=== PATIENT | female | born 1995 | race Hispanic/Latino ===

== ENCOUNTER 2017-12-20 19:15 | Emergency (ER) | payer SELFPAY ==
[2017-12-20 19:33] LABS: BILIRUBIN,URINE Negative (NEGATIVE); COLOR,URINE Yellow (YELLOW); GLUCOSE, URINE (UA) Negative (NEGATIVE); KETONES,URINE Negative (NEGATIVE); LEUKOCYTE ESTERASE ,URINE Trace (NEGATIVE); NITRATE,URINE Negative (NEGATIVE); OCCULT BLOOD,URINE Negative (NEGATIVE); PH,URINE 6.5 (5.0-8.0); PROTEIN,URINE Negative (NEGATIVE)
[2017-12-20 19:34] LABS: APPEARANCE,URINE SLIGHTLY CLOUDY (CLEAR)
[2017-12-20 19:36] LABS: HCG,QUAL RESULT NEGATIVE (NEGATIVE)
[2017-12-20 19:41] LABS: AMPHET/METH SCREEN,URINE NEGATIVE (NEGATIVE); BARBITURATE SCREEN, URINE NEGATIVE (NEGATIVE); BENZODIAZEPINES SCREEN,URINE NEGATIVE (NEGATIVE); CANNABINOID SCREEN,URINE NEGATIVE (NEGATIVE); COCAINE SCREEN,URINE NEGATIVE (NEGATIVE); OPIATE SCREEN,URINE NEGATIVE (NEGATIVE); PHENCYCLIDINE SCREEN,URINE NEGATIVE (NEGATIVE)
[2017-12-20 19:42] LABS: BACTERIA,URINE Few /HPF (None Seen); RBC,URINE 0-1 /HPF (0-1); SQUAMOUS EPITHELIAL CELL,UR Moderate /HPF (0-2); WBC,URINE 0-1 /HPF (0-1)
[2017-12-20 19:49] LABS: BASOPHILS % (AUTO) 0.5 % (0.0-5.0); EOSINOPHILS % (AUTO) 5.1 % (0.0-8.0); HEMATOCRIT 44.4 % (36-48); LYMPHOCYTES % (AUTO) 33.7 % (21.0-51.0); MEAN CORPUSCULAR HEMOGLOBIN 30.8 pg (27.0-33.0); MEAN CORPUSCULAR HGB CONC 35.7 g/dL (32.0-36.0); MEAN CORPUSCULAR VOLUME 86.2 fL (79-99); MONOCYTES % (AUTO) 5.3 % (3.0-13.0); NEUTROPHILS % (AUTO) 55.4 % (40.0-77.0); PLATELET COUNT (AUTO) 304 K/uL (130-400); RED BLOOD CELL COUNT(AUTO) 5.15 MIL/uL (4.00-5.50); RED CELL DISTRIBUTION WIDTH 12.8 % (11.0-15.5); WHITE BLOOD COUNT (AUTO) 9.4 K/uL (4.8-10.8)
[2017-12-20 19:52] LABS: POTASSIUM 4.5 mmol/L (3.5-5.1)
[2017-12-20 19:57] LABS: ALBUMIN 3.7 g/dL (3.5-5.0); BILIRUBIN,TOTAL 0.8 mg/dL (0.2-1.0); TOTAL PROTEIN, SERUM 7.8 g/dL (6.0-8.3)
== END 2017-12-20 21:35 | disposition home or self-care (01) ==
LOC: EDH 19:15
DX: N23 Unspecified renal colic (principal); Z87.442 Personal history of urinary calculi
CPT/HCPCS: 36415; 76770; 80053; 80305; 81001; 81025; 85025; 96361; 96374; 96375

== ENCOUNTER 2018-06-26 21:13 | Emergency (ER) | payer OTHER ==
[2018-06-26 21:38] LABS: BILIRUBIN,URINE Negative (NEGATIVE); COLOR,URINE Yellow (YELLOW); GLUCOSE, URINE (UA) Negative (NEGATIVE); KETONES,URINE Negative (NEGATIVE); LEUKOCYTE ESTERASE ,URINE Trace (NEGATIVE); NITRATE,URINE Negative (NEGATIVE); OCCULT BLOOD,URINE Large (NEGATIVE); PH,URINE 6.5 (5.0-8.0); PROTEIN,URINE Negative (NEGATIVE)
[2018-06-26 21:41] LABS: HCG,QUAL RESULT NEGATIVE (NEGATIVE)
[2018-06-26 21:42] LABS: APPEARANCE,URINE SLIGHTLY CLOUDY (CLEAR)
[2018-06-26 21:53] LABS: BACTERIA,URINE Few /HPF (None Seen)
[2018-06-26] MEDS ORDERED: ONDANSETRON ODT 4 MG TAB ONE (22:07)
[2018-06-26] MEDS ORDERED: DICYCLOMINE HCL 10 MG/ML 2ML AMP IM ONE (22:07)
[2018-06-26 22:23] LABS: BASOPHILS % (AUTO) 0.4 % (0.0-5.0); EOSINOPHILS % (AUTO) 3.2 % (0.0-8.0); HEMATOCRIT 43.6 % (36-48); LYMPHOCYTES % (AUTO) 31.5 % (21.0-51.0); MEAN CORPUSCULAR HEMOGLOBIN 30.8 pg (27.0-33.0); MEAN CORPUSCULAR VOLUME 87.8 fL (79-99); MONOCYTES % (AUTO) 3.6 % (3.0-13.0); NEUTROPHILS % (AUTO) 61.3 % (40.0-77.0); NUCLEATED RED BLOOD CELLS 0.1 % (0.0-0.19); PLATELET COUNT (AUTO) 263 K/uL (130-400); RED BLOOD CELL COUNT(AUTO) 4.97 MIL/uL (4.00-5.50); RED CELL DISTRIBUTION WIDTH 12.7 % (11.0-15.5); WHITE BLOOD COUNT (AUTO) 10.2 K/uL (4.8-10.8)
[2018-06-26 22:36] LABS: CREATININE 0.9 mg/dL (0.5-1.5)
== END 2018-06-26 22:51 | disposition home or self-care (01) ==
LOC: EDH 21:13
DX: A08.4 Viral intestinal infection, unspecified (principal); F32.9 Major depressive disorder, single episode, unspecified; Z87.442 Personal history of urinary calculi
CPT/HCPCS: 36415; 80048; 81001; 81025; 85025; 87804 ×2; 96372; 99284; J0500

== ENCOUNTER 2022-01-21 14:31 | Emergency (ER) | payer OTHER ==
[~2022-01-21] VITALS: Ht 149.9 cm; Wt 72.1 kg
[2022-01-21 15:42] LABS: APPEARANCE,URINE Clear (CLEAR); BILIRUBIN,URINE Negative (NEGATIVE); COLOR,URINE Yellow (YELLOW); GLUCOSE, URINE (UA) Negative (NEGATIVE); KETONES,URINE Negative (NEGATIVE); LEUKOCYTE ESTERASE ,URINE Trace (NEGATIVE); NITRATE,URINE Negative (NEGATIVE); OCCULT BLOOD,URINE Negative (NEGATIVE); PROTEIN,URINE Negative (NEGATIVE)
[2022-01-21 15:45] LABS: HCG,QUAL RESULT NEGATIVE (NEGATIVE)
[2022-01-21 15:47] LABS: BACTERIA,URINE Few /HPF (None Seen); RBC,URINE 0-1 /HPF (0-1); SQUAMOUS EPITHELIAL CELL,UR Moderate /HPF (0-2)
[2022-01-21 16:07] LABS: BASOPHILS % (AUTO) 0.3 % (0.0-5.0); EOSINOPHILS % (AUTO) 2.3 % (0.0-8.0); HEMATOCRIT 45.1 % (36-48); LYMPHOCYTES % (AUTO) 16.1 % (21.0-51.0); MEAN CORPUSCULAR HEMOGLOBIN 29.7 pg (27.0-33.0); MEAN CORPUSCULAR HGB CONC 34.1 g/dL (32.0-36.0); MEAN CORPUSCULAR VOLUME 86.9 fL (79-99); MONOCYTES % (AUTO) 3.7 % (3.0-13.0); NEUTROPHILS % (AUTO) 77.3 % (40.0-77.0); PLATELET COUNT (AUTO) 278 K/uL (130-400); RED BLOOD CELL COUNT(AUTO) 5.19 MIL/uL (4.00-5.50); RED CELL DISTRIBUTION WIDTH 12.7 % (11.0-15.5); WHITE BLOOD COUNT (AUTO) 9.1 K/uL (4.8-10.8)
[2022-01-21 16:24] LABS: CREATININE 0.9 mg/dL (0.5-1.5); POTASSIUM 3.9 mmol/L (3.5-5.1)
[2022-01-21 16:28] LABS: ALBUMIN 3.6 g/dL (3.5-5.0); TOTAL PROTEIN, SERUM 7.5 g/dL (6.0-8.3)
[2022-01-21] MEDS ORDERED: IBUPROFEN 600 MG TABLET ONE (16:35)
[2022-01-21] MEDS ORDERED: IBUPROFEN 600 MG TABLET PO ONE (17:00)
[2022-01-21] MEDS ORDERED: CEPH500B PO (17:03)
[2022-01-21] MEDS ORDERED: IBUP-2070 PO (17:03)
[2022-01-21] MEDS ORDERED: ONDA4TAB10 PO (17:03)
[2022-01-21 17:32] VITALS: BP 106/57
== END 2022-01-21 17:43 | disposition home or self-care (01) ==
LOC: EDH 14:31
DX: N39.0 Urinary tract infection, site not specified (principal); Z20.822 Contact with and (suspected) exposure to COVID-19; I10 Essential (primary) hypertension; Z79.899 Other long term (current) drug therapy
CPT/HCPCS: 36415; 80053; 81001; 81025; 85025; 87635; 87804 ×2; 87880; 99283; C9803

== ENCOUNTER 2022-05-11 17:23 | Emergency (ER) | payer OTHER ==
[~2022-05-11] VITALS: Ht 149.9 cm; Wt 69.9 kg
[~2022-05-11 17:23] MED LIST: CEPH500B PO; COMP10 PO; IBUP-2070 PO; ONDA4TAB10 PO
[2022-05-11 17:29] VITALS: BP 114/80
[2022-05-11] MEDS ORDERED: FAMOTIDINE 20MG TAB PO ONE (18:30)
[2022-05-11] MEDS ORDERED: MAG/ALUM/SIMETH 30 ML UDCUP PO ONE (18:30)
[2022-05-11] MEDS ORDERED: DICYCLOMINE HCL 10 MG/5 ML ML PO ONE (18:30)
[2022-05-11] MEDS ORDERED: ONDANSETRON 4MG TABLET PO ONE (18:30)
[2022-05-11] MEDS ORDERED: LIDOCAINE HCL 2% VISCOUS 15 ML UDCUP PO ONE (18:30)
[2022-05-11 18:35] LABS: APPEARANCE,URINE CLEAR (CLEAR); BILIRUBIN,URINE NEGATIVE (NEGATIVE); COLOR,URINE YELLOW (YELLOW); GLUCOSE, URINE (UA) NEGATIVE (NEGATIVE); KETONES,URINE NEGATIVE (NEGATIVE); LEUKOCYTE ESTERASE ,URINE NEGATIVE (NEGATIVE); NITRATE,URINE NEGATIVE (NEGATIVE); OCCULT BLOOD,URINE NEGATIVE (NEGATIVE); PH,URINE 6.5 (5.0-8.0); PROTEIN,URINE NEGATIVE (NEGATIVE)
[2022-05-11 18:38] LABS: HCG,QUALITATIVE URINE NEGATIVE (NEGATIVE)
[2022-05-11 18:48] LABS: BASOPHILS % (AUTO) 0.3 % (0.0-5.0); EOSINOPHILS % (AUTO) 1.5 % (0.0-8.0); HEMATOCRIT 43.8 % (36-48); LYMPHOCYTES % (AUTO) 24.9 % (21.0-51.0); MEAN CORPUSCULAR HEMOGLOBIN 29.9 pg (27.0-33.0); MEAN CORPUSCULAR HGB CONC 34.9 g/dL (32.0-36.0); MEAN CORPUSCULAR VOLUME 85.5 fL (79-99); MONOCYTES % (AUTO) 4.3 % (3.0-13.0); NEUTROPHILS % (AUTO) 68.7 % (40.0-77.0); PLATELET COUNT (AUTO) 301 K/uL (130-400); RED BLOOD CELL COUNT(AUTO) 5.12 MIL/uL (4.00-5.50); RED CELL DISTRIBUTION WIDTH 12.2 % (11.0-15.5); WHITE BLOOD COUNT (AUTO) 10.8 K/uL (4.8-10.8)
[2022-05-11 18:54] LABS: POTASSIUM 4.3 mmol/L (3.5-5.1)
[2022-05-11 19:01] LABS: TOTAL PROTEIN, SERUM 8.3 g/dL (6.0-8.3)
[2022-05-11] MEDS ORDERED: DICY20TA2 PO (19:19)
[2022-05-11] MEDS ORDERED: FAMO-136 PO (19:19)
== END 2022-05-11 19:30 | disposition home or self-care (01) ==
LOC: EDH 17:23
DX: K29.70 Gastritis, unspecified, without bleeding (principal); E66.9 Obesity, unspecified; Z68.31 Body mass index [BMI] 31.0-31.9, adult
CPT/HCPCS: 99284; 80053; 83690; 85025; 81003; 81025; 36415; Q0162

== ENCOUNTER 2024-11-15 16:38 | Emergency (ER) | payer BC, OTHER ==
[~2024-11-15] VITALS: Ht 149.9 cm; Wt 79.8 kg
[~2024-11-15 16:38] MED LIST changes: -COMP10 PO; +DICY20TA2 PO; +FAMO-136 PO; +ONDA-243 PO; -ONDA4TAB10 PO; +PROC-30 PO
[2024-11-15 17:45] VITALS: BP 138/90; PULSE 81; RESP 16; TEMP 98.8; O2SAT 96
--- NOTE | 2024-11-15 17:49 | HMCIMG ---
ULTRASOUND RENAL COMPLETE INDICATION: Left flank pain TECHNIQUE: Routine ultrasound of the kidneys and urinary bladder with grayscale and color Doppler imaging was performed in real-time, and subsequently made available for review. COMPARISON: No prior studies available for comparison. FINDINGS: The right kidney measures 8.1 x 4.3 x 3.6 cm. No abnormal mass demonstrated. No evidence for hydronephrosis or shadowing stone. The left kidney measures 10.0 x 3.8 x 4.7 cm. No abnormal mass demonstrated. No evidence for hydronephrosis or shadowing stone. Urinary bladder appears normal. Both ureteral jets demonstrated. IMPRESSION: Normal study.
[2024-11-15 18:11] LABS: BASOPHILS # (AUTO) 0.03 K/uL (0.00-0.20); BASOPHILS % (AUTO) 0.3 % (0.0-5.0); EOSINOPHILS # (AUTO) 0.42 K/uL (0.00-0.70); EOSINOPHILS % (AUTO) 4.7 % (0.0-8.0); IMMATURE GRANULOCYTE ABSOLUTE 0.03 K/uL (0-1); LYMPHOCYTES # (AUTO) 2.8 K/uL (1.0-4.8); LYMPHOCYTES % (AUTO) 31.7 % (21.0-51.0); MEAN CORPUSCULAR HEMOGLOBIN 29.7 pg (27.0-33.0); MEAN CORPUSCULAR HGB CONC 34.3 g/dL (32.0-36.0); MEAN CORPUSCULAR VOLUME 86.6 fL (79-99); MONOCYTES # (AUTO) 0.4 K/uL (0.1-1.0); MONOCYTES % (AUTO) 4.3 % (3.0-13.0); NEUTROPHILS # (AUTO) 5.3 K/uL (1.8-7.7); NEUTROPHILS % (AUTO) 58.7 % (40.0-77.0); PLATELET COUNT (AUTO) 292 K/uL (130-400); RED BLOOD CELL COUNT(AUTO) 4.62 MIL/uL (4.00-5.50); RED CELL DISTRIBUTION WIDTH 12.5 % (11.0-15.5)
[2024-11-15 18:14] LABS: ADD UA MICROSCOPIC YES; APPEARANCE,URINE CLEAR (CLEAR); BILIRUBIN,URINE 3 mg/dL (NEGATIVE); COLOR,URINE DARK-ORANGE (YELLOW); GLUCOSE, URINE (UA) NEGATIVE (NEGATIVE); KETONES,URINE NEGATIVE (NEGATIVE); LEUKOCYTE ESTERASE ,URINE NEGATIVE Leu/uL (NEGATIVE); NITRATE,URINE 2+ (NEGATIVE); OCCULT BLOOD,URINE NEGATIVE (NEGATIVE); PH,URINE 6.5 (5.0-8.0); PROTEIN,URINE 20 mg/dL (NEGATIVE); UROBILINOGEN,URINE 12 mg/dL (0.2-1.0)
[2024-11-15 18:16] LABS: BACTERIA,URINE FEW /HPF (None Seen); MUCUS,URINE RARE LPF (None Seen); SQUAMOUS EPITHELIAL CELL,UR FEW /HPF (0-2)
[2024-11-15 18:27] LABS: CREATININE 0.9 mg/dL (0.5-1.0); POTASSIUM 4.2 mmol/L (3.5-5.1)
[2024-11-15] MEDS: cefTRIAXone 1G VIAL IVPB STA (18:51)
[2024-11-15] MEDS: 0.9%NACL 1000ML 1,000 ML IV STA (18:51)
[2024-11-15] MEDS: ketOROlac 15MG/ML VIAL (15MG/ML) IV STA (18:51)
[2024-11-15] MEDS ORDERED: CEPH500T PO (18:52)
--- NOTE | 2024-11-15 18:53 | ERN ---
ED Note History of Present Illness Stated Complaint: PELVIC PAIN, DYSURIA X4 DAYS Chief Complaint: Pelvic Pain Time Seen by MD: 16:42 Time Seen by Midlevel: 16:45 Dictation: 29-year-old female coming in with complaints of urinary frequency and dysuria. Patient states she was diagnosed on Wednesday with a kidney stone on her left kidney. Patient went to her PCP this morning which in turn was going to set her up with a urologist in the next few weeks. Patient denies any fever, nausea, vomiting or diarrhea. No other complaints at this time Allergies: Coded Allergies: No Known Allergies (Unverified Allergy, Unknown, 01/21/22) Home Meds Active Scripts Dicyclomine HCl (Bentyl) 20 Mg Tab, 20 MG PO QIDP, #28 TAB Prov:AR HAMMOND 05/11/22 Famotidine (Pepcid) 20 Mg Tablet, 20 MG PO BID, #60 TAB Prov:AR HAMMOND 05/11/22 Prochlorperazine Maleate (Compazine) 10 Mg Tab, 10 MG PO TID for NAUSEA, #10 TAB Prov:SHASHI MCCORMICK MD 04/17/22 Ibuprofen (Ibuprofen) 600 Mg Tablet, 600 MG PO Q6H PRN for PAIN, #15 TAB Prov:MATTHEW HUGHES 01/21/22 Ondansetron (Ondansetron Odt) 4 Mg Tab.rapdis, 4 MG PO TID, #15 TAB Prov:FITTINGMATTHEW 01/21/22 Cephalexin Monohydrate (Keflex) 500 Mg Cap, 500 MG PO QID for 7 Days, #28 CAP Prov:FITTINGMATTHEW 01/21/22 Past Medical History Past Medical History: Anxiety, Kidney Stone Additional Past Medical Hx: Obesity Surgical History: None Surgical History Other: LITHOTRIPSY Family History: Negative Social History: Negative, Lives with family History: Not Applicable : 0 Review of System Dictation Constitutional: Negative for fever,chills, and weight loss Eyes: Negative for injury, pain,redness, and discharge ENT: Negative for injury,pain or swelling Cardiovascular: Negative for chest pain, palpitations, and edema Respiratory: Negative for shortness of breath, cough, and wheezing, Abdomen/GI: Negative for abdominal pain, nausea, vomiting, diarrhea, and constipation Back: Negative for injury and pain : Negative for injury, bleeding and discharge complaining of urinary frequency and burning sensation MS/Extremity: Negative for injury and deformity Skin: Negative for rash, and discoloration Neuro: Negative for headache, weakness, numbness, tingling, and seizure Psych: Negative for suicide ideation, homicidal ideation, and hallucinations Review of Systems: was completed Initial Vital Sign VS Vital Signs Date Time Temp Pulse Resp B/P (MAP) Pulse Ox O2 Delivery O2 Flow Rate FiO2 11/15/24 16:40 98.8 81 16 138/90 96 Room Air 0 11/15/24 17:45 21 Physical Exam Dictation General: awake, alert, NAD Head/Face: Normocephalic, atraumatic Eyes: PERRL, EOMI, vision at baseline ENT: oral cavity clear, TMs clear, no signs of infection Neck: Trachea midline, supple, no nuchal rigidity Cardiovascular: RRR, normal S1/S2, No MRGs, no JVD Respiratory: CTAB, no respiratory distress, No rales or wheezes Abdomen: Soft, non-tender, non-distended, normal bowel sounds, no guarding or rebound. Skin: Warm, dry, normal turgor, no rash MS/Extremity: Pulses equal, no cyanosis, neurovascular intact, FROM Neuro: COAx4, GCS 15, strength 5/5, CN 2-12 intact, normal cerebellar exam, normal gait, Psych: Normal behavior, mood, and affect normal Results (Laboratory/Radiology) Laboratory/Radiology Laboratory Tests Test 11/15/24 18:00 11/15/24 18:05 White Blood Count 9.0 K/uL (4.8-10.8) Red Blood Count 4.62 MIL/uL (4.00-5.50) Hemoglobin 13.7 g/dL (12.0-16.0) Hematocrit 40.0 % (36-48) Mean Corpuscular Volume 86.6 fL (79-99) Mean Corpuscular Hemoglobin 29.7 pg (27.0-33.0) Mean Corpuscular Hemoglobin Concent 34.3 g/dL (32.0-36.0) Red Cell Distribution Width 12.5 % (11.0-15.5) Platelet Count 292 K/uL (130-400) Mean Platelet Volume 9.1 fL (7.5-10.5) Immature Granulocyte % (Auto) 0.3 % (0-1) Neutrophils (%) (Auto) 58.7 % (40.0-77.0) Lymphocytes (%) (Auto) 31.7 % (21.0-51.0) Monocytes (%) (Auto) 4.3 % (3.0-13.0) Eosinophils (%) (Auto) 4.7 % (0.0-8.0) Basophils (%) (Auto) 0.3 % (0.0-5.0) Neutrophils # (Auto) 5.3 K/uL (1.8-7.7) Lymphocytes # (Auto) 2.8 K/uL (1.0-4.8) Monocytes # (Auto) 0.4 K/uL (0.1-1.0) Eosinophils # (Auto) 0.42 K/uL (0.00-0.70) Basophils # (Auto) 0.03 K/uL (0.00-0.20) Absolute Immature Granulocyte (auto 0.03 K/uL (0-1) Nucleated Red Blood Cells 0.0 % (0.0-0.19) Sodium Level 135 mmol/L (136-145) L Potassium Level 4.2 mmol/L (3.5-5.1) Chloride Level 101 mmol/L (101-111) Carbon Dioxide Level 31 mmol/L (21-32) Blood Urea Nitrogen 18 mg/dL (7-18) Creatinine 0.9 mg/dL (0.5-1.0) Glomerular Filtration Rate Calc 88 mL/min (>90) Random Glucose 99 mg/dL (70-105) Total Calcium 8.7 mg/dL (8.5-10.1) Human Chorionic Gonadotropin, Quant 0 mIU/mL (0-5) Urine Color DARK-ORANGE (YELLOW) Urine Appearance CLEAR (CLEAR) Urine pH 6.5 (5.0-8.0) Urine Specific [place] 1.023 (1.001-1.031) Urine Protein 20 mg/dL (NEGATIVE) H Urine Glucose (UA) NEGATIVE mg/dL (NEGATIVE) Urine Ketones NEGATIVE mg/dL (NEGATIVE) Urine Occult Blood NEGATIVE (NEGATIVE) Urine Nitrate 2+ (NEGATIVE) H Urine Bilirubin 3 mg/dL (NEGATIVE) H Urine Urobilinogen 12 mg/dL (0.2-1.0) H Urine Leukocyte Esterase NEGATIVE April/uL Urine RBC 2-5 /HPF (0-1) H Urine WBC 2-5 /HPF (0-1) H Urine Squamous Epithelial Cells FEW /HPF (0-2) Urine Bacteria FEW /HPF (None Seen) Labs Reviewed?: Yes Ultrasound Comment: [facility] [address] [place] [address] IMAGING REPORT Signed PATIENT: EDVIN AN MR#: [id number] : 1995 SEX: F AGE: 29 LOCATION: [facility] ORDER 52 STATUS: REG ER REPORT#: [id number] SERVICE 164 REASON: left flank pain, hs of hidney stones, feels pressure in bladder ORDERING PHYSICIAN: GUTIERREZ SINGH [employer] REPA[employer]ER PROCEDURE: RENAL - US RENAL SONOGRAM ULTRASOUND RENAL COMPLETE INDICATION: Left flank pain TECHNIQUE: Routine ultrasound of the kidneys and urinary bladder with grayscale and color Doppler imaging was performed in real-time, and subsequently made available for review. COMPARISON: No prior studies available for comparison. FINDINGS: The right kidney measures 8.1 x 4.3 x 3.6 cm. No abnormal mass demonstrated. No evidence for hydronephrosis or shadowing stone. The left kidney measures 10.0 x 3.8 x 4.7 cm. No abnormal mass demonstrated. No evidence for hydronephrosis or shadowing stone. Urinary bladder appears normal. Both ureteral jets demonstrated. IMPRESSION: Normal study. DICTATED BY: EMMETT GALVAN MD DATE: 11/15/241735 ELECTRONICALLY SIGNED BY: EMMETT GALVAN MD DATE: 11/15/24 174 ED Course ED Course Orders Procedure Category Date Status Time Cbc With Differential LAB 11/15/24 Complete 16:49 Basic Metabolic Panel LAB 11/15/24 Complete 16:49 Urinalysis Profile LAB 11/15/24 Complete 16:49 Hcg,Quantitative LAB 11/15/24 Complete 16:49 0.9%Nacl 1000ml (Ns PHA 11/15/24 In Process 1000ml) 16:49 Us Renal Sonogram US 11/15/24 Resulted 16:49 Culture Urine BUTCH 11/15/24 In Process 18:15 Ketorolac PHA 11/15/24 Logged Tromethamine 15mg/Ml 18:43 Ceftriaxone 1g Vial PHA 11/15/24 Logged (Rocephine 1g Inj) 18:43 Current Medications Medications (Trade) Dose Ordered Sig/Bari Route PRN Reason Start Time Stop Time Status Last Admin Dose Admin Ceftriaxone Sodium (ROCEphine 1G INJ) 1 gm ONCE STAT IVPB 11/15/24 18:43 11/15/24 18:44 UNV Ketorolac Tromethamine (toRADol) 15 mg ONCE STAT IV 11/15/24 18:43 11/15/24 18:44 UNV Sodium Chloride 1,000 ml @ 100 mls/hr Q10H STAT IV 11/15/24 16:49 11/16/24 02:48 Vital Signs Date Time Temp Pulse Resp B/P (MAP) Pulse Ox O2 Delivery O2 Flow Rate FiO2 11/15/24 17:45 98.8 81 16 138/90 96 Room Air* 0 21 11/15/24 16:40 98.8 81 16 138/90 96 Room Air 0 Medical Decision Making MDM MDM: 29-year-old female coming in with complaints of urinary frequency and dysuria. Patient states she was diagnosed on Wednesday with a kidney stone on her left kidney. Patient went to her PCP this morning which in turn was going to set her up with a urologist in the next few weeks. Patient denies any fever, nausea, vomiting or diarrhea. No other complaints at this time. CBC shows no leukocytosis, no anemia, no thrombocytopenia. Chemistry shows no acute findings. Normal kidney function. UA shows mild urinary tract infection with positive nitrites , WBC count and few bacteria in the urine. Patient will receive fluids, pain medication and Rocephin in the ER. Patient will be discharged with p.o. antibiotics and have patient follow up with her assigned urologist. Educated patient on findings, educated to return back to the emergency room if patient starts to develop any fever, nausea or vomiting. Differential diagnosis: Kidney stone, UTI, pyelonephritis, hydronephrosis Rationale: Tests considered and ordered secondary to shared decision making include: Previous outside records reviewed: Old ER visits. Risk of complication and/or morbidity or mortality of patient management: None Medications-Per medication reconciliation Need for hospitalization: Patient does not meet criteria for hospitalization. Need for emergency major/minor surgery: No There are no social concerns with this patient. Prescription drug management Prescriptions will include symptomatic care Patient's prior external medical records from other ER visits were reviewed by me as indicated. Prior testing and results from previous visits were reviewed. Prior tests were taken into account with medical decision making and resource utilization, independent historian/historians were used to obtain complete medical history. I independently interpreted the test that were performed, results were reviewed by me and considered findings on radiology if ordered. Medical management and examination interpretation discussions were had by me with other qualified healthcare professionals as indicated for the patient's care. DX & DISP Disposition: Discharge Departure Impression: Primary Impression: UTI (urinary tract infection) Condition: Stable Scripts Cephalexin (Cephalexin) 500 Mg Tablet 1 TAB PO BID for 10 Days, #20 TAB 0 Refills Prov: GUTIERREZ SINGH NP 11/15/24 Additional Instructions: Take antibiotics as prescribed. Take [id number] pain medication like Tylenol or Motrin. Follow up with your specialist as scheduled. Return to the hospital if you develop any fevers, nausea or vomiting. Referrals: SELF,REFERRAL (PCP) Time of Disposition: 18:50 I have reviewed the case, and I agree with, Diagnosis and Plan GUTIERREZ SINGH NP Nov 15, 2024 18:53
--- NOTE | 2024-11-15 18:57 | NUR ---
DC AFTER FLUIDS, AWARE
== END 2024-11-15 19:43 | disposition home or self-care (01) ==
LOC: EDH 16:38
DX: N39.0 Urinary tract infection, site not specified (principal); E66.9 Obesity, unspecified; Z68.35 Body mass index [BMI] 35.0-35.9, adult
CPT/HCPCS: 99284; 96374; 76770; 96375; 80048; 84702; 85025; 87086; 81001; 36415; J1885; J0696